=== PATIENT | female | born 1960 | race Caucasian/White ===

== ENCOUNTER 2024-07-22 09:21 | Emergency (ER) | payer MEDICARE, OTHER ==
[~2024-07-22] VITALS: Ht 154.9 cm; Wt 93.1 kg
[~2024-07-22 09:21] MED LIST: OMEP20CA74 PO
[2024-07-22] MEDS: VANCOMYCIN 1GM/200ML PREMIX 250 ML IV ONE (10:14)
[2024-07-22 10:17] VITALS: PULSE 87; RESP 20; O2SAT 91
[2024-07-22 10:34] LABS: Basophils # (auto) 0.1 10 ^3/uL (0-0.2); Eosinophils # (auto) 0.2 10 ^3/uL (0-0.8); Hemoglobin 14.6 g/dL (12.2-16.2); Mean Corpuscular Volume 104.8 fL (80.0-100.0); Monocytes # (auto) 0.9 10 ^3/uL (0-1.3)
[2024-07-22 10:38] LABS: Basophils % (auto) 1.4 % (0.0-2.0); Eosinophils % (auto) 2.3 % (0.0-7.0); Hematocrit 42.3 % (36.0-46.0); Lymphocytes % (auto) 51.1 % (10.0-50.0); Mean Corpuscular Hemoglobin 36.2 pg (28.0-32.0); Mean Corpuscular Hgb Conc. 34.6 g/dL (32.0-36.0); Monocytes % (auto) 11.7 % (0.0-12.0); Neutrophils # (auto) 2.6 10 ^3/uL (1.6-8.6); Neutrophils % (auto) 33.5 % (37.0-80.0); Nucleated Red Blood Cells % 0.2 %; Platelet Count (auto) 103 10^3/uL (140-450); Red Blood Cells 4.04 10^6/uL (4.0-5.20); White Blood Cell 7.9 10^3/uL (4.4-10.8)
[2024-07-22 10:42] LABS: Alanine Aminotransferase 36 U/L (7-40); Alkaline Phosphatase 322 U/L (46-116); Anion Gap 6 (5-15); Aspartate Aminotransferase 79 U/L (13-40); BUN/Creatinine Ratio 16.7 (10.0-20.0); Bilirubin, Total 2.8 mg/dL (0.2-1.0); Blood Urea Nitrogen 9 mg/dL (9-23); Carbon Dioxide 25 mmol/L (20-31); Chloride 111 mmol/L (98-107); Glucose 90 mg/dL (74-106); Potassium 3.7 mmol/L (3.5-5.1); Sodium 142 mmol/L (136-145); Total Protein 7.2 g/dL (5.7-8.2)
[2024-07-22] MEDS: IOHEXOL 300 MG/ML 100ML BOTTLE IJ ONE (11:23)
[2024-07-22 11:44] LABS: Urine Bacteria FEW /hpf (None Seen); Urine Blood Negative /uL (Negative); Urine Clarity Turbid (Clear); Urine Color Yellow (Yellow); Urine Mucus FEW (None Seen); Urine Protein, UAD Negative (Negative); Urine Specific Gravity 1.021 (1.001-1.035); Urine Urobilinogen 2 mg/dL (Negative); Urine WBC 3 /hpf (0 - 5)
[2024-07-22 14:19] VITALS: BP 134/79; PULSE 98; RESP 18; TEMP 98.4; O2SAT 91
== END 2024-07-22 15:38 | disposition left against medical advice (07) ==
LOC: ER 09:21
DX: L03.116 Cellulitis of left lower limb (principal); K80.00 Calculus of gallbladder with acute cholecystitis without obstruction; J44.9 Chronic obstructive pulmonary disease, unspecified; F17.200 Nicotine dependence, unspecified, uncomplicated; Z59.00 Homelessness unspecified; Z88.0 Allergy status to penicillin; Z79.899 Other long term (current) drug therapy
CPT/HCPCS: 36415; 71046; 74177; 80053; 81001; 83605; 84484; 85025; 96365; 96366; 99285; J3370; Q9967